=== PATIENT | male | born 1980 | race Hispanic/Latino ===

== ENCOUNTER → 2022-10-22 | Outpatient (CLI) | payer OTHER ==
[~2022-10-22] MED LIST: ALBUTEROL 0.083% 2.5 MG/3 ML INH IH ONE
== END | disposition home or self-care (01) ==
LOC: RESP 12:29
PROVIDERS: ATTEND Chiropractor
DX: J01.90 Acute sinusitis, unspecified (principal)
CPT/HCPCS: 94060